=== PATIENT | female | born 1950 | race Two or more races ===

== ENCOUNTER 2022-09-14 16:46 | Inpatient (IN) | payer OTHER ==
[~2022-09-14] VITALS: Ht 170.2 cm; Wt 68.9 kg
--- NOTE | 2022-09-14 17:00 | NUR ---
BIB [facility] FROM A CLINIC BECAUSE THEY CAN'T DO LEG X-RAY WITH PATIENT LAYING DOWN,C/O LEFT LEG PAIN S/P GLF AT 1000.
--- NOTE | 2022-09-14 17:50 | NUR ---
X-RAY TECH AT BEDSIDE
[2022-09-14] MEDS ORDERED: HYDROCODONE/APAP 5/325MG TABLET PO ONE (19:00)
[2022-09-14] MEDS ORDERED: HYDROCODONE/APAP 5/325MG TABLET ONE (19:10)
--- NOTE | 2022-09-14 19:18 | NUR ---
SWAB FOR COVID19 SENT TO LAB
[2022-09-14 19:49] LABS: CALCIUM, SERUM 9.2 mg/dL (8.5-10.1); POTASSIUM 4.4 mmol/L (3.5-5.1)
[2022-09-14 19:57] LABS: BASOPHILS % (AUTO) 0.3 % (0.0-2.0); EOSINOPHILS % (AUTO) 0.3 % (0.0-6.0); HEMATOCRIT 41 % (33-45); LYMPHOCYTES # (AUTO) 1.5 K/uL (0.8-4.8); LYMPHOCYTES % (AUTO) 12.2 % (20.0-44.0); MEAN CORPUSCULAR HGB CONC 32 g/dl (31.0-36.0); MEAN CORPUSCULAR VOLUME 92 fL (82-100); MONOCYTES # (AUTO) 0.8 K/uL (0.1-1.30); MONOCYTES % (AUTO) 6.9 % (2.0-12.0); NEUTROPHILS # (AUTO) 9.7 K/uL (1.8-8.9); NEUTROPHILS % (AUTO) 80.3 % (43.0-81.0); PLATELET COUNT (AUTO) 271 K/uL (150-450); RED BLOOD CELL COUNT(AUTO) 4.45 MIL/uL (4.0-5.2)
[2022-09-14] MEDS ORDERED: Z GUARD REMEDY 4 OZ OINT TP PRN (20:00)
[2022-09-14] MEDS ORDERED: MAG HYDROX/AL HYDROX/SIMETH 30 ML UDC PO PRN (20:00)
[2022-09-14] MEDS ORDERED: MAGNESIUM HYDROXIDE 30 ML UDC PO PRN (20:00)
[2022-09-14] MEDS ORDERED: ACETAMINOPHEN 325 MG TABLET PO PRN (20:00)
--- NOTE | 2022-09-14 20:17 | NUR ---
REPORT GIVEN TO NOVEMBER RN ROOM 306 FOR JENNIFER
[2022-09-14 20:30] VITALS: BP 159/86
--- NOTE | 2022-09-14 20:40 | NUR ---
MS AIRPLANE CLEANER NOTE PATIENT IS BEING TRANSPORTED FROM ER TO THE UNIT, ACCOMPANIED BY HER SON AND HER . PT IS [place] SPEAKER, SHE LIVES IN [place]. SHE COMES TO VISIT HER SON. DURING THE INTERVIEW, HER SON HAS BEEN HELPING TO EXPLAIN TO HER IN [place]. PT IS ON RA, TOLERATED WELL. NO S/S OF DISTRESS OR SOB. PT HAS IV ACCESS AT HER R AC, #20G, SL. FLUSHED WITH 10 CC OF NS. IV SITE IS PATENT AND INTACT. INTRODUCED THE PT AND HER FAMILY MEMBERS WITH SURROUNDINGS; TEACH THEM HOW TO USE THE CALL LIGHT. PATIENT AND HER FAMILY MEMBERS VERBALIZED UNDERSTANDING. SAFETY MEASURES ARE IN PLACED: BED IN LOWEST AND LOCKED POSITION; CALL LIGHT AND TABLE ARE WITHIN REACH; SIDE RAILS UP X 2; BED ALARM IS SET. WILL MONITOR THE PATIENT AND PROVIDE THE CARE PT NEEDS.
[2022-09-14] MEDS: ONDANSETRON HCL/PF 4 MG/2 ML VIAL IVP PRN (23:14)
[2022-09-14] MEDS: MORPHINE SULFATE INJ 2 MG/ML DISP.SYRIN IV PRN (23:15)
--- NOTE | 2022-09-14 23:16 | NUR ---
MS RN NOTE PT STATES SHE IS FEELING NAUSEA. PRN MEDICATION, ZOFRAN, GIVEN THROUGH IV PER MD ORDER.
--- NOTE | 2022-09-14 23:16 | NUR ---
MS RN NOTE PT STATED SHE HAS PAIN ON HER L SIDE HIP, 10/10 ON THE ZERO TO 10 PAIN SCALE. PRN MEDICATION, MORPHINE, GIVEN THROUGH IV PER MD ORDER.
[2022-09-15] VITALS (7 sets, daily range): BP systolic 97–147; BP diastolic 54–89
[2022-09-15 06:09] LABS: BASOPHILS % (AUTO) 0.5 % (0.0-2.0); EOSINOPHILS % (AUTO) 2.2 % (0.0-6.0); HEMATOCRIT 39 % (33-45); HEMOGLOBIN 12.6 g/dL (11.5-14.8); LYMPHOCYTES # (AUTO) 1.3 K/uL (0.8-4.8); LYMPHOCYTES % (AUTO) 12.3 % (20.0-44.0); MEAN CORPUSCULAR HGB CONC 33 g/dl (31.0-36.0); MEAN CORPUSCULAR VOLUME 93 fL (82-100); MONOCYTES # (AUTO) 0.7 K/uL (0.1-1.30); MONOCYTES % (AUTO) 6.3 % (2.0-12.0); NEUTROPHILS # (AUTO) 8.1 K/uL (1.8-8.9); NEUTROPHILS % (AUTO) 78.7 % (43.0-81.0); PLATELET COUNT (AUTO) 249 K/uL (150-450); WHITE BLOOD COUNT (AUTO) 10.3 K/uL (4.3-11.0)
[2022-09-15 06:27] LABS: CALCIUM, SERUM 8.7 mg/dL (8.5-10.1); CHLORIDE 101 mmol/L (98-107); CREATININE 0.9 mg/dL (0.6-1.3); GLUCOSE 132 mg/dL (74-106); MAGNESIUM 1.2 mg/dL (1.8-2.4); PHOSPHORUS 3.5 mg/dL (2.5-4.9); POTASSIUM 3.8 mmol/L (3.5-5.1); SODIUM SERUM 138 mmol/L (136-145); UREA NITROGEN, BLOOD 19 mg/dL (7-18)
[2022-09-15] MEDS: ONDANSETRON HCL/PF 4 MG/2 ML VIAL IVP PRN (06:33)
--- NOTE | 2022-09-15 06:33 | NUR ---
MS RN NOTE PT STATES SHE IS FEELING NAUSEA. PRN MEDICATION, ZOFRAN, GIVEN THROUGH IV PER MD ORDER.
[2022-09-15] MEDS: MORPHINE SULFATE INJ 2 MG/ML DISP.SYRIN IV PRN ×2 (06:34→10:54)
--- NOTE | 2022-09-15 06:50 | NUR ---
MS RN CLOSING NOTE PATIENT IS SLEEPING IN BED, EASILY BEING AROUSED. PT IS ON 2 LPM OF OXYGEN VIA NC, TOLERATED WELL. NO S/S OF DISTRESS OR SOB. PT HAS IV ACCESS AT HER R AC, #20G, SL. IV SITE IS PATENT AND INTACT. PT DENIES OF HAVING PAIN AT THIS MOMENT. PT HAS BEEN ON NPO AFTER MN PER MD ORDER. SAFETY MEASURES ARE IN PLACED: BED IN LOWEST AND LOCKED POSITION; CALL LIGHT AND TABLE ARE WITHIN REACH; SIDE RAILS UP X 2; BED ALARM IS SET. WILL ENDORSE NEXT SHIFT NURSE FOR CONTINUING PT CARE.
--- NOTE | 2022-09-15 07:35 | NUR ---
MS RN OPENING NOTE RECEIVED PATIENT IN BED AWAKE , PASHTO SPEAKING . PT IS ON 2 LPM OF OXYGEN VIA NC . NO S/S OF DISTRESS OR SOB AT THIS TIME . PT HAS IV ACCESS AT HER R AC, #20G, SL. IV SITE IS PATENT AND INTACT. NO C/O OF PAIN AND DISCOMFORT AT THIS MOMENT. PT HAS BEEN ON NPO AFTER MN PER MD ORDER. SAFETY MEASURES ARE IN PLACED: BED IN LOWEST AND LOCKED POSITION; CALL LIGHT AND TABLE ARE WITHIN REACH; SIDE RAILS UP X 2; BED ALARM IS SET. WILL CONTINUE TO MONITOR
[2022-09-15 07:36] LABS: CARBON DIOXIDE 30 mmol/L (21-32)
[2022-09-15] MEDS ORDERED: LEVO75TA7 PO (10:19)
[2022-09-15] MEDS ORDERED: EXEM25TA5 PO (10:19)
[2022-09-15] MEDS ORDERED: ROSU5TAB PO (10:19)
[2022-09-15] MEDS ORDERED: OMEP20CA15 PO (10:19)
[2022-09-15] MEDS ORDERED: METF-441 PO (10:19)
[2022-09-15] MEDS: Magnesium 1GM/D5W 100ML PREMIX 100 ML IV SCH ×4 (10:30→13:37)
--- NOTE | 2022-09-15 13:00 | NUR ---
RN NOTES PRE OOP CHECKLIST WAS DONE , CONSENTS FOR SURGERY , ANESTHESIA AND BLOOD TRANSFUSION WAS SIGNED BY THE RESPONSIBLE DEMOCRAT -SON
[2022-09-15] MEDS ORDERED: POLYMYXIN B SULFATE 500,000 UNITS ONE (13:49)
[2022-09-15] MEDS ORDERED: BUPIVACAINE 0.25% 75 MG/30 ML VIAL ONE (13:49)
[2022-09-15] MEDS ORDERED: FENTANYL PF 250MCG/5ML AMPUL ONE (17:07)
[2022-09-15] MEDS ORDERED: HYDROMORPHONE INJ 2 MG/ML DISP.SYRIN ONE (17:07)
[2022-09-15] MEDS ORDERED: ROCURONIUM BROMIDE 50 MG/5 ML ONE (17:08)
[2022-09-15] MEDS ORDERED: FAMOTIDINE/PF INJ 20 MG/2 ML VIAL IV ONE (17:08)
--- NOTE | 2022-09-15 17:35 | NUR ---
RN NOTES PATIENT WAS PICKED BY STAFF FROM SURGERY IN A STABLE CONDITION
--- NOTE | 2022-09-15 19:20 | NUR ---
MS RN NOTE RECEIVED REPORT FROM NURSE MATIAS. PT IS IN SURGERY NOW. AWAITING FOR PT TO RETURN TO UNIT.
--- NOTE | 2022-09-15 20:22 | NUR ---
MS RN NOTE PT WILL NOT RETURN TO UNIT. PT IS GOING TO ICU AFTER SURGERY. ALL BELONGINGS, AND TOPICAL CREAM ARE BROUGHT TO ICU.
[2022-09-15] MEDS ORDERED: HYDROCODONE/APAP 5/325MG TABLET PO PRN (21:00)
[2022-09-15] MEDS ORDERED: HYDROCODONE/APAP 10/325MG TABLET PO PRN (21:00)
--- NOTE | 2022-09-15 21:00 | NUR ---
RN/ICU- RECEIVED PT. FROM OR BY BED, ACCOMPANIED BY OR/PACU STAFF PER PROTOCOL PT. WAS TRANSFERRED TO ICU FOR DECREASED VT AND DESATURATION. PT. S/P LEFT HIP HEMIARTHROPLASTY. W/ OCCLUSIVE DRESSING NOTED ON LEFT HIP INCISION SITE, W/ ICE PACK IN PLACE. NO BLEEDING OR SWELLING NOTED W/ ABDUCTION PILLOW IN PLACE. PT. ON 8 L SM, SATS.-88%, WILL NOTIFY RT. PT. VERY LETHARGIC, BUT AROUSABLE. WILL CONTINUE TO MONITOR PER PROTOCOL.
[2022-09-15] MEDS ORDERED: ANESTHESIA TRAY IN PYXIS 1 EA TRAY MC ONE (21:03)
--- NOTE | 2022-09-15 21:20 | NUR ---
RN/ICU-RT BORRERO HERE AND ASSESSED PT. STILL SATS.89-90%, CHANGED O2 SUPPORT TO NRB, AND PT. SATS. 93-94%, NOT IN ANY DISTRESS.
--- NOTE | 2022-09-15 21:30 | NUR ---
RN/ICU-FAMILY HERE AND SAW PT. EXPLAINED TO SON KAYLEE AND SPOUSE REGARDING PT. STATUS AND PLAN OF CARE, VERBALIZED UNDERSTANDING. WILL COME TO SEE PT. IN AM.
--- NOTE | 2022-09-15 22:45 | NUR ---
RN NOTE BS CHECKED AT 167 MG/DL, NO COVERAGE GIVEN, PER MD, START MILD SLIDING SCALE WHEN PT IS MORE AWAKE. REMOTE SENSING SPECIALIST MD AT BEDSIDE. ORDERED TO START IVF OF 1/2 NS AT 75 ML/HR. WILL CONTINUE TO MONITOR PT.
[2022-09-15] MEDS ORDERED: BLOOD SUGAR DIAGNOSTIC 1 EACH STRIP IN SCH (23:00)
[2022-09-15] MEDS: IV 1/2NS 1000 ML 1,000 ML IV SCH (23:02)
[2022-09-16] VITALS (21 sets, daily range): BP systolic 95–142; BP diastolic 48–82
[2022-09-16] MEDS: ANCEF 1 GM/50 ML D5W IV SCH ×6 (02:17→17:04)
[2022-09-16 04:47] LABS: BASOPHILS % (AUTO) 0.3 % (0.0-2.0); HEMATOCRIT 37 % (33-45); HEMOGLOBIN 11.8 g/dL (11.5-14.8); LYMPHOCYTES # (AUTO) 0.8 K/uL (0.8-4.8); MEAN CORPUSCULAR HGB CONC 32 g/dl (31.0-36.0); MEAN CORPUSCULAR VOLUME 93 fL (82-100); MONOCYTES # (AUTO) 0.7 K/uL (0.1-1.30); MONOCYTES % (AUTO) 6.6 % (2.0-12.0); NEUTROPHILS # (AUTO) 8.7 K/uL (1.8-8.9); NEUTROPHILS % (AUTO) 84.1 % (43.0-81.0); PLATELET COUNT (AUTO) 214 K/uL (150-450); RED BLOOD CELL COUNT(AUTO) 3.94 MIL/uL (4.0-5.2); WHITE BLOOD COUNT (AUTO) 10.4 K/uL (4.3-11.0)
[2022-09-16] MEDS ORDERED: DEXTROSE 50%-WATER 50 ML DISP.SYRIN IV PRN (05:00)
[2022-09-16 05:59] LABS: CALCIUM, SERUM 7.8 mg/dL (8.5-10.1); CARBON DIOXIDE 27 mmol/L (21-32); CHLORIDE 105 mmol/L (98-107); GLUCOSE 165 mg/dL (74-106); POTASSIUM 4.1 mmol/L (3.5-5.1); SODIUM SERUM 140 mmol/L (136-145); UREA NITROGEN, BLOOD 18 mg/dL (7-18)
[2022-09-16 06:00] LABS: MAGNESIUM 2.1 mg/dL (1.8-2.4); PHOSPHORUS 3.7 mg/dL (2.5-4.9)
--- NOTE | 2022-09-16 06:54 | NUR ---
[place] AIDE CLOSING NOTE PATIENT IS SLEEPING IN BED, EASILY AROUSABLE TO TOUCH AND VOICE, PT IS ON 10 LPM OF OXYGEN VIA SIMPLE MASK, TOLERATED WELL. NO S/S OF DISTRESS OR SOB. PT HAS IV ACCESS AT R WRIST, #20G, IV SITE IS PATENT AND INTACT RUNNING 1/2 NS AT 75 ML/HR, PT DENIES OF HAVING PAIN AT THIS TIME. FC IN PLACE DRAINING URINE TO GRAVITY, ALL DUE MEDS GIVEN, L HIP OCCLUSIVE DSG INTACT WITH ICE PACKS, NO BLEEDING NOTED. SAFETY MEASURES ARE IN PLACED: BED IN LOWEST AND LOCKED POSITION; CALL LIGHT AND TABLE ARE WITHIN REACH; SIDE RAILS UP X 2; BED ALARM IS SET. WILL ENDORSE AM SHIFT NURSE FOR CONTINUITY OF CARE.
[2022-09-16] MEDS: BLOOD SUGAR DIAGNOSTIC 1 EACH STRIP IN SCH ×4 (07:49→21:36)
--- NOTE | 2022-09-16 07:59 | NUR ---
GAMEPLAY PROGRAMMER OPENING NOTE PATIENT IS AWAKE IN BED, ALERT AND ORIENTED X3, PT IS ON 10 LPM OF OXYGEN VIA SIMPLE MASK, TOLERATED WELL. NO S/S OF DISTRESS OR SOB. PT HAS IV ACCESS AT R WRIST, #20G, IV SITE IS PATENT, INTACT, AND FLUSHES WELL WITH 1/2 NS RUNNING AT 75 ML/HR, PT DENIES OF HAVING PAIN AT THIS TIME. FC IN PLACE DRAINING URINE TO GRAVITY, L HIP OCCLUSIVE DSG INTACT. ON TELE MONITORING WITH SINUS RHYTHM. SAFETY MEASURES ARE IN PLACED: BED IN LOWEST AND LOCKED POSITION; CALL LIGHT AND TABLE ARE WITHIN REACH; SIDE RAILS UP X 2; BED ALARM IS SET. PLAN OF CARE CONTINUE.
--- NOTE | 2022-09-16 08:27 | NUR ---
DR. BROWNE AT THE BEDSIDE, PER DR. BROWNE CAN D/C NPO AND RESUME PO INTAKE. NOTED AND CARRIED OUT.
[2022-09-16] MEDS: ENOXAPARIN SODIUM 40 MG/0.4 ML DISP.SYRIN SQ SCH (09:31)
[2022-09-16] MEDS: IPRATROPIUM NEB FS 0.5 MG/2.5 ML AMPUL.NEB NEB SCH ×3 (10:52→20:14)
[2022-09-16] MEDS: ALBUTEROL HALF STRENGTH 1.25 MG/3 ML VIAL.NEB NEB SCH ×3 (10:52→20:14)
[2022-09-16] MEDS: INSULIN REGULAR, HUMAN 100 UNIT/ML 3 ML VIAL SQ PRN ×3 (11:35→21:37)
[2022-09-16] MEDS: IV 1/2NS 1000 ML 1,000 ML IV SCH (12:12)
--- NOTE | 2022-09-16 13:36 | NUR ---
DOPPLER ULTRASOUND DONE.
--- NOTE | 2022-09-16 15:30 | NUR ---
TRANSFERRED PATIENT TO [facility] WITH ACLS AT ROOM 110, GAVE REPORT TO GRAND SMITH, ALL PERSONAL BELONGINGS AND MEDICATIONS TRANSFERRED WITH THE PATIENT.
--- NOTE | 2022-09-16 15:30 | NUR ---
PATIENT RECEIVED FROM ICU, PATIENT IS AWAKE, ALERT, ORIENTED X3, NO SIGNS OF IN DISTRESS, NO COMPLAINTS OF PAIN, UNLABORED BREATHING ON 5L/MIN OF 02, FAMILY IS AT BEDSIDE, SAFETY MEASURES ARE IN PLACE, BED IN LOW POSITION, SIDE RAILS UPX3, CALL LIGHT WITHIN REACH.
[2022-09-16] MEDS: PROSOURCE / PROSTAT (PYXIS) 30 ML UDC GT SCH (16:18)
--- NOTE | 2022-09-16 19:19 | NUR ---
CLOSING NOTE PATIENT IS AWAKE, RESTING IN BED COMFORTABLY, NO SIGNS OF IN DISTRESS, NO COMPLAINT OF PAIN, UNLABORED BREATHING, PATIENT IS ON 5L/MIN OF O2, SAFETY MEASURES ARE IN PLACED, BED IN LOW POSITION, SIDE RAILS UPX3, CALL LIGHT WITHIN REACH.
--- NOTE | 2022-09-16 19:30 | NUR ---
MAINTENANCE CUSTODIAN OPENING NOTE RECEIVED PATIENT IN BED, WITH EYES CLOSED BUT EASY TO AROUSE AND RESPONSIVE, WITH FAMILY AT BEDSIDE. AFEBRILE AND NOT IN ANY FORM OF ACUTE DISTRESS. ON O2 INHALATION VIA NASAL CANNULA AT 5LPM. ON TELE MONITORING WITH CURRENT READING OF SR. WITH IV ACCESS ON R WRIST 20G RUNNING WITH 1/2 NS AT 75ML/HR. SAFETY MEASURES IN PLACE. KEPT BED IN LOCKED AND IN LOW POSITION. SIDE RAILS UP X2. ADVISED TO USE THE CALL LIGHT WHEN IN NEED OF ASSISTANCE.
[2022-09-17] VITALS (12 sets, daily range): BP systolic 116–143; BP diastolic 68–80
[2022-09-17] MEDS: IV 1/2NS 1000 ML 1,000 ML IV SCH (00:40)
[2022-09-17] MEDS: IPRATROPIUM NEB FS 0.5 MG/2.5 ML AMPUL.NEB NEB SCH ×4 (01:56→19:07)
[2022-09-17] MEDS: ALBUTEROL HALF STRENGTH 1.25 MG/3 ML VIAL.NEB NEB SCH ×4 (01:56→19:07)
--- NOTE | 2022-09-17 06:30 | NUR ---
RICE FARMWORKER CLOSING NOTE PATIENT IN BED, ASLEEP BUT EASY TO AROUSE AND RESPONSIVE. AFEBRILE AND NOT IN ANY FORM OF ACUTE DISTRESS. ON O2 INHALATION VIA NASAL CANNULA AT 5LPM. ON TELE MONITORING WITH CURRENT READING OF SR 94. WITH IV ACCESS ON R WRIST 20G RUNNING WITH 1/2 NS AT 75ML/HR. WITH INTACT LAMBERT CATHETER, DRAINING WELL WITH YELLOW URINE OUTPUT, NO HEMATURIA OR SEDIMENTS NOTED. WITH DRESSING ON L HIP, INTACT AND NO BLEEDING NOTED. HIP ABDUCTOR IN PLACE. MONITORED FOR ANY S/SX. OF HYPO/HYPERGLYCEMIA. MEDICATED ORDERED. SAFETY MEASURES IN PLACE. KEPT BED IN LOCKED AND IN LOW POSITION. SIDE RAILS UP X2. ADVISED TO USE THE CALL LIGHT WHEN IN NEED OF ASSISTANCE. ALL NURSING NEEDS ATTENDED. ENDORSED TO INCOMING SHIFT FOR CONTINUITY OF CARE.
[2022-09-17] MEDS: BLOOD SUGAR DIAGNOSTIC 1 EACH STRIP IN SCH ×4 (06:53→21:49)
[2022-09-17] MEDS: INSULIN REGULAR, HUMAN 100 UNIT/ML 3 ML VIAL SQ PRN ×4 (06:55→21:50)
[2022-09-17 07:07] LABS: BASOPHILS % (AUTO) 0.2 % (0.0-2.0); EOSINOPHILS % (AUTO) 2.7 % (0.0-6.0); HEMATOCRIT 35 % (33-45); HEMOGLOBIN 11.3 g/dL (11.5-14.8); LYMPHOCYTES % (AUTO) 10.8 % (20.0-44.0); MEAN CORPUSCULAR HGB CONC 33 g/dl (31.0-36.0); MEAN CORPUSCULAR VOLUME 92 fL (82-100); MONOCYTES # (AUTO) 0.8 K/uL (0.1-1.30); MONOCYTES % (AUTO) 8.3 % (2.0-12.0); NEUTROPHILS # (AUTO) 7.4 K/uL (1.8-8.9); PLATELET COUNT (AUTO) 215 K/uL (150-450); RED BLOOD CELL COUNT(AUTO) 3.73 MIL/uL (4.0-5.2); WHITE BLOOD COUNT (AUTO) 9.4 K/uL (4.3-11.0)
[2022-09-17 07:17] LABS: CALCIUM, SERUM 7.9 mg/dL (8.5-10.1); CREATININE 0.9 mg/dL (0.6-1.3); POTASSIUM 3.7 mmol/L (3.5-5.1)
--- NOTE | 2022-09-17 07:53 | NUR ---
TELE ([facility]) RN OPENING NOTE (DAYSHIFT) RECEIVED PATIENT IN BED, WITH EYES CLOSED, BUT EASY TO AROUSE AND RESPONSIVE. AFEBRILE AND NOT IN ANY FORM OF ACUTE DISTRESS. ON O2 INHALATION VIA NASAL CANNULA AT 5 LPM. ON TELE MONITORING WITH CURRENT READING OF SR. PATIENT HAS IV ACCESS ON R WRIST 20G RUNNING WITH 1/2 NS AT 75ML/HR. SAFETY MEASURES IN PLACE. KEPT BED IN LOCKED AND IN LOW POSITION. SIDE RAILS UP X 2. ADVISED TO USE THE CALL LIGHT WHEN IN NEED OF ASSISTANCE. WILL CONTINUE TO CARE FOR AND MONITOR PATIENT PER HOSPITALIST'S POC.
[2022-09-17] MEDS: PROSOURCE / PROSTAT (PYXIS) 30 ML UDC GT SCH ×2 (09:45→17:50)
[2022-09-17] MEDS: ENOXAPARIN SODIUM 40 MG/0.4 ML DISP.SYRIN SQ SCH (09:51)
--- NOTE | 2022-09-17 18:55 | NUR ---
TELE ([facility]) RN CLOSING NOTE (DAYSHIFT) PATIENT IS AWAKE, RESTING IN BED COMFORTABLY, NO SIGNS OF DISTRESS, NO COMPLAINT OF PAIN, UNLABORED BREATHING, PATIENT IS ON 4 L/MIN OF O2, TITRATING PATIENT TO GET OFF OXYGEN PER MD ORDER. PATIENT SAFETY MEASURES ARE IN PLACE, BED IN LOW POSITION, SIDE RAILS UP X 3. LAMBERT CATHETER DRAINING TO GRAVITY CLEAR, YELLOW URINE. ALL MEDICATIONS GIVEN ORDERED. LEFT HIP OCCLUSIVE DRESSING S/P LEFT HIP ARTHROPLASTY SURGERY POD # 2 IS STILL CLEAN, DRY AND INTACT. PATIENT GOT UP OOB WITH PHYSICAL THERAPY AND WALKED ABOUT 4 STEPS BEFORE GETTING DIZZY AND NEEDIING TO GET BACK INTO BED. CALL LIGHT WITHIN REACH. TELEMETRY IS SR IN 90S WITH OCCAISION PACS. WILL ENDORSE TO RELEASE SPECIALIST RN FOR JENNIFER.
--- NOTE | 2022-09-17 19:00 | NUR ---
RN NOTES: RECEIVED ASLEEP ON BED, A/OX2-3, YORUBA SPEAKING, S/P LEFT HIP HEMIARTHROPLASTY,POSTERIOR HIP PRECAUTION OBSERVED,ON O2 AT 5L/MIN VIA NC, WEANING OFF GRADUALLY TOLERATED, ON TELE MONITOR SINUS RHYTHM-89, ON BED REST, LAMBERT CATH ON SITE DRAINING INTO YELLOWISH COLORED URINE AT 100 CC LEVEL, ON PT THERAPY, TODAY MORNING DID NOT TOLERATE WELL, IV CANNULA ON THE LFA G#22, IVF D/C, ON CLOSE WATCH, KEPT CALL LIGHT WITHIN EASY REACH.
--- NOTE | 2022-09-17 21:50 | NUR ---
RN NOTES: BLOOD SUGAR CHECK-175, INSULIN GIVEN PER SCALE, WILL CONTINUE TO MONITOR FOR ANY SIGN OF HYPER/HYPOGLYCEMIA.
[2022-09-18] VITALS (8 sets, daily range): BP systolic 101–131; BP diastolic 49–89
--- NOTE | 2022-09-18 02:23 | NUR ---
RN NOTES: NOTED WITH ON AND OFF COUGH, DUE FOR NEBULIZATION, GIVEN BY RT.
[2022-09-18] MEDS: IPRATROPIUM NEB FS 0.5 MG/2.5 ML AMPUL.NEB NEB SCH ×4 (02:27→20:25)
[2022-09-18] MEDS: ALBUTEROL HALF STRENGTH 1.25 MG/3 ML VIAL.NEB NEB SCH ×4 (02:27→20:25)
--- NOTE | 2022-09-18 04:15 | NUR ---
RN NOTES: SPONGE BATH GIVEN, CLEAN AND CHANGE, EXPLAINED TO HER WITH THE HELP OF THAI SPEAKING STAFF THAT WE NEED TO TAKE PICTURE OF HER LEFT HIP SURGICAL SITE AND RN WILL REMOVE HER LAMBERT CATH AT 0600, SHE AGREE FOR PICTURE BUT SHE REFUSED FOR LAMBERT CATH REMOVAL SHE PREFER IT TO STAY BECAUSE SHE DONT NEED TO GET UP IN THE NIGHT TO PEE, ITS MORE CONVENIENT AND HELPFUL FOR HER. WILL NOTIFY MD LATER DURING ROUNDS. -LEFT HIP SURGICAL SITE-GLUED, CLEAN, NO BLEEDING NO DRAINAGE NOTED.INTACT.
--- NOTE | 2022-09-18 06:43 | NUR ---
RN NOTES: SLEEP WELL IN THE NIGHT, TITRATE O2 REDUCE TO 4L/MIN VIA NC, TOLERATED SPO2-94%, AWAKE IN BETWEEN NEEDS ATTENDED, REPOSITION, TOLERATED, NO PAIN OR DISCOMFORT,FOR PT THERAPY TODAY, ENDORSED TO F/U WITH MD TO CHANGE TO DIABETIC DIET,FOR LABS IN THE MORNING, CXR, REFUSED LAMBERT CATH REMOVAL, ENDORSED FOR CONTINUITY OF CARE.
[2022-09-18] MEDS: BLOOD SUGAR DIAGNOSTIC 1 EACH STRIP IN SCH ×4 (07:27→22:08)
[2022-09-18] MEDS: PROSOURCE / PROSTAT (PYXIS) 30 ML UDC GT SCH ×2 (07:29→16:42)
--- NOTE | 2022-09-18 07:30 | NUR ---
OPENING NOTE RECEIVED PATIENT IN BED ASLEEP, NO SIGNS OF IN DISTRESS, UNLABORED BREATHING ON 2L/MIN OF O2, SAFETY MEASURES APPLIED, BED IN LOW POSITION, SIDE RAILS UPX3, CALL LIGHT WITHIN REACH.
[2022-09-18] MEDS: INSULIN REGULAR, HUMAN 100 UNIT/ML 3 ML VIAL SQ PRN ×3 (07:47→22:13)
[2022-09-18 07:50] LABS: BASOPHILS % (AUTO) 0.4 % (0.0-2.0); HEMATOCRIT 34 % (33-45); LYMPHOCYTES # (AUTO) 1.1 K/uL (0.8-4.8); LYMPHOCYTES % (AUTO) 11.1 % (20.0-44.0); MEAN CORPUSCULAR HGB CONC 33 g/dl (31.0-36.0); MEAN CORPUSCULAR VOLUME 93 fL (82-100); MONOCYTES # (AUTO) 0.9 K/uL (0.1-1.30); NEUTROPHILS # (AUTO) 7.4 K/uL (1.8-8.9); NEUTROPHILS % (AUTO) 76.5 % (43.0-81.0); PLATELET COUNT (AUTO) 262 K/uL (150-450); RED BLOOD CELL COUNT(AUTO) 3.66 MIL/uL (4.0-5.2); WHITE BLOOD COUNT (AUTO) 9.6 K/uL (4.3-11.0)
[2022-09-18 08:08] LABS: CALCIUM, SERUM 8.7 mg/dL (8.5-10.1); CREATININE 0.9 mg/dL (0.6-1.3); POTASSIUM 3.7 mmol/L (3.5-5.1)
[2022-09-18] MEDS: ENOXAPARIN SODIUM 40 MG/0.4 ML DISP.SYRIN SQ SCH (08:30)
--- NOTE | 2022-09-18 13:54 | NUR ---
FOLLOW UP WITH RADIOLOGY REGARDING CT CHEST SCAN WITHOUT CONTRAST BUT NO ANSWER.
--- NOTE | 2022-09-18 13:58 | NUR ---
OF NOW PATIENT IS ON ROOM AIR, SPO2-94-95%. UNLABORED BREATHING.
--- NOTE | 2022-09-18 18:40 | NUR ---
LAMBERT CATHETER REMOVED PER ORDER
--- NOTE | 2022-09-18 19:00 | NUR ---
RN OPENING NOTES PT IS AWAKE WITH FAMILY ON BEDSIDE. A/OX 3, [place] SPEAKING. PT ON RA, TOLERATING WELL, BREATHING EVEN AND UNLABORED @THIS TIME. PT IV ACCESS IS PRESENT ON THE LEFT FOREARM #22G, PATENT, INTACT AND FLUSHES WELL W/ NO S & SX OF INFILTRATION @ SITE NOTED. SAFETY MEASURES IS IN PLACE. BED AT ITS LOWEST AND LOCKED POSITION. SIDE RAILS UP X 2.BEDSIDE TABLE AND CALL LIGHT IS EASY REACH. BED ALARM IS ON. WILL CONTINUE TO MONITOR PT ACCORDINGLY.
--- NOTE | 2022-09-18 22:00 | NUR ---
PT BLOOD GLUCOSE IS 187. GLUCOMETER DOES NOT RECOGNIZE THE PT ID.
[2022-09-19] VITALS: BP 118/54
[2022-09-19] MEDS: ALBUTEROL HALF STRENGTH 1.25 MG/3 ML VIAL.NEB NEB SCH ×3 (01:11→13:14)
[2022-09-19] MEDS: IPRATROPIUM NEB FS 0.5 MG/2.5 ML AMPUL.NEB NEB SCH ×3 (01:11→13:14)
[2022-09-19 04:00] VITALS: BP 120/59
[2022-09-19] MEDS: BLOOD SUGAR DIAGNOSTIC 1 EACH STRIP IN SCH ×2 (06:35→11:05)
[2022-09-19] MEDS: INSULIN REGULAR, HUMAN 100 UNIT/ML 3 ML VIAL SQ PRN ×2 (06:37→11:07)
--- NOTE | 2022-09-19 06:58 | NUR ---
RN CLOSING NOTES PT IS DOZING INTERMITTENTLY IN BED. A/O X 4. RESPONSIVE AND FOLLOWS VERBAL COMMAND. PT IS ON RA, 02 SAT 100% NO S/SX OF RESPIRATORY DISTRESS NOTED. IV SITE ON LEFT FOREARM #22G SALINE LOCK, PATENT, INTACT AND FLUSHES WELL WITH NO S& SX OF INFILTRATION @ SITE NOTED. PT IS ON TELE MONITOR WITH CURRENT READING OF SR, HR 82BPM. PT HAD 1 BM, 1 VOID AND PASSED GAS. PT IS KEPT CLEAN, DRY AND COMFORTABLE. ADMINISTERED ALL MEDICATIONS ACCORDINGLY PER MD'S ORDER. SAFETY MEASURES IS IN PLACE. BED IS AT ITS LOWEST AND LOCKED POSITION. SIDE RAILS UP X 2. BEDSIDE TABLE AND CALL LIGHT IS EASY REACH. BED ALARM IS ON. WILL ENDORSE TO THE NEXT SHIFT FOR CONTINUITY OF CARE.
[2022-09-19 08:00] VITALS: BP 131/74
[2022-09-19] MEDS: PROSOURCE / PROSTAT (PYXIS) 30 ML UDC GT SCH ×2 (08:50→16:52)
[2022-09-19] MEDS: ENOXAPARIN SODIUM 40 MG/0.4 ML DISP.SYRIN SQ SCH (09:18)
[2022-09-19 12:00] VITALS: BP 138/71
[2022-09-19 16:00] VITALS: BP 129/84
[2022-09-19] MEDS ORDERED: HYDR-4303 PO (16:23)
[2022-09-19] MEDS ORDERED: ENOX40DI SQ (16:23)
--- NOTE | 2022-09-19 17:08 | NUR ---
PATIENT HAS BEEN DISCHARGE TO HOME WITH FAMILY MEMBER, SON AND , PATIENT IS IN STABLE CONDITION, INSTRUCTED KAYLEE (SON) REGARDING ENOXAPARIN INJECTION MEDICATION HOW TO GIVE IT SUBCUTANEOUSLY, SON SAID, "I KNOW HOW TO DO IT". DISCHARGED PACKET GIVEN TO THE FAMILY MEMBER.
== END 2022-09-19 17:12 | disposition home or self-care (01) | DRG 521 ==
LOC: ER 16:51 → MED 20:09 → ICU 09-15 20:04 → TELE1 09-16 15:29
PROVIDERS: ADMIT Internal Medicine; ATTEND Internal Medicine
PROC: 0SRS0JZ Replacement of Left Hip Joint, Femoral Surface with Synthetic Substitute, Open Approach (ICD-10-PCS; principal; 2022-09-15)
DX: S72.002A Fracture of unspecified part of neck of left femur, initial encounter for closed fracture (principal); J96.01 Acute respiratory failure with hypoxia; N17.0 Acute kidney failure with tubular necrosis; C78.00 Secondary malignant neoplasm of unspecified lung; Z20.822 Contact with and (suspected) exposure to COVID-19; W01.0XXA Fall on same level from slipping, tripping and stumbling without subsequent striking against object, initial encounter; Y92.9 Unspecified place or not applicable; E11.42 Type 2 diabetes mellitus with diabetic polyneuropathy; D72.829 Elevated white blood cell count, unspecified; E03.9 Hypothyroidism, unspecified; Z79.811 Long term (current) use of aromatase inhibitors; Z79.84 Long term (current) use of oral hypoglycemic drugs; Z79.899 Other long term (current) drug therapy; E78.5 Hyperlipidemia, unspecified; K21.9 Gastro-esophageal reflux disease without esophagitis; Z87.891 Personal history of nicotine dependence; J84.10 Pulmonary fibrosis, unspecified; Z85.3 Personal history of malignant neoplasm of breast
CPT/HCPCS: 36415; 71045-TC; 71250-TC; 73502; 73552; 73564-TC; 73700-TC; 80048-TC; 82962-TC; 83735-TC; 84100-TC; 85025-TC; 85730-TC; 87081-TC; 88305-TC; 88311-TC; 93970-TC; 94799-TC; 97112-TC; 97116-TC; 97530-TC; A4217; A4223; A6209; C1776; C9803; G0378; J0690; J1170; J1650; J1815; J2270; J2405; J2704; J2765; J3010; J3475; J3490; J7030; J7060